=== PATIENT | female | born 1945 | race Caucasian/White ===

== ENCOUNTER → 2021-02-09 | Outpatient (CLI) | payer OTHER ==
[~2021-02-09] MED LIST: ACYCLOVIR200 MG PO; ATIVAN2 MG PO; DITROPAN 5 MG TA5 MG PO; DOCUSATE SODIU250 MG PO; HYDROCHLOROTHIA25 MG PO; HYDROCODONE-AC1 EACH PO; IBUPROFEN600 MG PO; LEVOTHYROXINE50 MCG PO; METFORMIN HCL500 M2 PO; PRAVASTATIN SOD40 MG PO; PROZAC20 MG PO; ST. JOSEPH ASPI81 M1 PO; TURMERIC PO; VITAMIN D21250 MCG PO
[2021-02-09 11:53] LABS: HEMOGLOBIN 13.6 gm/dl (12.3-15.3); RED BLOOD COUNT 4.33 M/UL (4.00-5.10); WHITE BLOOD COUNT 5.5 K/UL (4.5-11.0)
[2021-02-09 12:10] LABS: BUN/CREATININE RATIO 16 (0-10)
== END ==
LOC: OPSV2 10:00
PROVIDERS: Obstetrics & Gynecology
DX: Z01.818 Encounter for other preprocedural examination (principal); N81.9 Female genital prolapse, unspecified
CPT/HCPCS: 36415; 80053; 81001; 85025; 93005

== ENCOUNTER 2021-02-20 06:47 | Day surgery (SDC) | payer OTHER ==
[~2021-02-20] VITALS: Ht 160 cm; Wt 90.7 kg
[2021-02-20] MEDS ORDERED: ST. JOSEPH ASPI81 M1 PO (07:48)
[2021-02-20] MEDS ORDERED: ATIVAN2 MG PO (11:10)
[2021-02-20] MEDS ORDERED: PRAVASTATIN SOD40 MG PO (11:12)
[2021-02-20] MEDS ORDERED: PROZAC20 MG PO (11:13)
[2021-02-20] MEDS ORDERED: LEVOTHYROXINE50 MCG PO (11:13)
[2021-02-20] MEDS ORDERED: VITAMIN D21250 MCG PO (11:13)
[2021-02-20] MEDS ORDERED: HYDROCHLOROTHIA25 MG PO (11:14)
[2021-02-20] MEDS ORDERED: METFORMIN HCL500 M2 PO (11:15)
[2021-02-20] MEDS ORDERED: ACYCLOVIR200 MG PO (11:16)
[2021-02-20] MEDS ORDERED: DITROPAN 5 MG TA5 MG PO (11:59)
[2021-02-20] MEDS ORDERED: IBUPROFEN600 MG PO (11:59)
[2021-02-20] MEDS ORDERED: HYDROCODONE-AC1 EACH PO (11:59)
[2021-02-20] MEDS ORDERED: DOCUSATE SODIU250 MG PO (11:59)
[2021-02-20] MEDS ORDERED: TURMERIC PO (14:43)
--- NOTE | 2021-02-21 09:37 | NUR ---
INSTRUCTED PATIENT ON IMPORTANCE OF KEEPING FOLLOW UP APPOINTMENTS TELE HEALTH AND IN OFFICE. MEDS SENT TO [facility],. VERBALIZED UNDERSTANDING. BETTIE STOCK R.N.
--- NOTE | 2021-02-21 10:18 | NUR ---
UPON DOING D/C INSTRUCTIONS PATIENT STATES THAT SHE IS ALLERGIC TO DITROPAN AND IS UNABLE TO TAKE THE PRESCRIPTION. MADE AWARE. HE STATED TO CALL PHARMACY AND CANCEL THE SCRIPT AND TO CALL IN A NEW PRESCRIPTION FOR PYRIDIUM 200MG PO BID PRN X5 DAYS FOR BLADDER SPASMS. PHARMACY WAS CONTACTED AND THEY STATED THAT THEY CANCELLED THE OLD SCRIPT AND ADDED THE NEW ONE TO PATIENTS MEDICATION LIST. PATIENT MADE AWARE OF CHANGES AND NEW EDUCATION COMPLETED FOR SCRIPTS.
== END 2021-02-21 10:35 | disposition home or self-care (01) ==
LOC: OR 06:47 → MED SURG 4 12:01 → OR 02-21 10:35
PROVIDERS: Obstetrics & Gynecology
PROC: 0UT74ZZ Resection of Bilateral Fallopian Tubes, Percutaneous Endoscopic Approach (ICD-10-PCS; 2021-02-20)
PROC: 0USG4ZZ Reposition Vagina, Percutaneous Endoscopic Approach (ICD-10-PCS; 2021-02-20)
PROC: 0UQF0ZZ Repair Cul-de-sac, Open Approach (ICD-10-PCS; 2021-02-20)
PROC: 0JQC0ZZ Repair Pelvic Region Subcutaneous Tissue and Fascia, Open Approach (ICD-10-PCS; 2021-02-20)
PROC: 0UT94ZZ Resection of Uterus, Percutaneous Endoscopic Approach (ICD-10-PCS; principal; 2021-02-20 08:00)
PROC: 0UT24ZZ Resection of Bilateral Ovaries, Percutaneous Endoscopic Approach (ICD-10-PCS; 2021-02-20 08:00)
DX: N81.6 Rectocele (principal); N39.46 Mixed incontinence; N72 Inflammatory disease of cervix uteri; N88.8 Other specified noninflammatory disorders of cervix uteri; N83.332 Acquired atrophy of left ovary and fallopian tube; N83.331 Acquired atrophy of right ovary and fallopian tube; N80.0 Endometriosis of uterus; R33.9 Retention of urine, unspecified; I10 Essential (primary) hypertension; E11.9 Type 2 diabetes mellitus without complications; M19.90 Unspecified osteoarthritis, unspecified site; E03.9 Hypothyroidism, unspecified; E78.00 Pure hypercholesterolemia, unspecified; Z20.822 Contact with and (suspected) exposure to COVID-19; Z85.3 Personal history of malignant neoplasm of breast; Z92.21 Personal history of antineoplastic chemotherapy; Z88.0 Allergy status to penicillin; Z88.8 Allergy status to other drugs, medicaments and biological substances; Z79.84 Long term (current) use of oral hypoglycemic drugs; Z79.899 Other long term (current) drug therapy
CPT/HCPCS: 71045; 82962; C1769; J1100; J1170; J1580; J2405; J2704; J3010; J7030; J7120; U0002